=== PATIENT | female | born 1945 | race Caucasian/White ===

== ENCOUNTER 2018-01-14 10:05 | Emergency (ER) | payer OTHER ==
[2018-01-14 10:11] VITALS: BMI 30.2
--- NOTE | 2018-01-14 10:22 | DR.GENAD ---
HPI - PCP Primary Care Physician: - Complaint/Symptoms Chief Complaint Doctors Comments: Intermittent abd. pain x 3 weeks. She has recent nausea + vomitting. She states emesis had been clear but now is bilious. She has had no fever. The pain is located in epigastrium and lt, abdomen. Chief Complaint:: Patient c/o left sided abd pain with nausea and vomiting x3 weeks. Patient has a history of diverticulitis Self Treatment fo Chief Complaint: Patient has been taking antibitiocs- flagyl and doxycycline - Nurses notes reviewed Nurses Notes Review: Yes - Source History Provided: Patient - Mode of Arrival Mode of Arrival: Ambulatory - Timing Onset of Chief Complaint: 12/30/17 PMH - PMH Past Medical History: Yes Past Medical History: Hypertension Past Medical History Comment: diverticulitis Past Surgical History: No - Family History History of Family Medical Conditions: Yes Family Medical History: Hypertension - Social History Does patient currently use any type of tobacco product: No Have you used tobacco products in the last 12 months: No Type of Tobacco Use: None Does any household member use tobacco: No Alcohol Use: None Do you use any recreational Drugs:: No Lives With: Family Lives Where: Home - infectious screening In the last 2 months have you had wt loss of >10#?: NO Have you had fever, night sweats or hemotysis?: No Have you traveled outside the country in the last 6 months?: No Isolation: Standard ROS - Review of Systems Eyes: No Symptoms Reported ENTM: No Symptoms Reported Respiratoy: No Symptoms Reported Cardiovascular: No Symptoms Reported Gastrointestinal/Abdominal: Abdominal Pain, Nausea, Vomiting Genitourinary: No Symptoms Reported Neurological: No Symptoms Reported Musculoskeletal: No Symptoms Reported Integumentary: No Symptoms Reported Hematologic/Lymphatic: No Symptoms Reported Endocrine: No Symptoms Reported Psychiatric: No Symptoms Reported All Other Systems: Reviewed and Negative PE - Vital Signs Vitals: Temperature 97.1 F Pulse Rate [Left Brachial] 59 Pulse Rate 72 Respiratory Rate 19 Blood Pressure [Left Arm] 174/73 Blood Pressure 196/86 O2 Sat by Pulse Oximetry 100 - General Limitations: No Limitations General Appearance: Alert, In Distress (pain related) - Head Head Exam: Normal Inspection - Eyes Eye exam: Normal Appearance - ENT ENT Exam: Normal Exam - Neck Neck Exam: Normal Inspection - Chest Chest Inspection: Normal Inspection - Respiratory Respiratory Exam: Normal Lung Sounds Bilat - Cardiovascular Cardiovascular Exam: Regular Rate, Normal Rhythm, +S1, +S2 - Abdominal Exam Abdominal Exam: Normal Inspection, Normal Bowel Sounds, Soft, Tenderness Abdominal Tenderness: LUQ, LLQ, Epigastrium - Extremities Extremities Exam: Normal Inspection - Back Back Exam: Normal Inspection - Neurologic Neurological Exam: Alert, Oriented X3 - Psychiatric Psychiatric Exam: Normal Affect, Normal Mood - Skin Skin Exam: Warm, Dry, Intact, Normal Color ROR - Labs Reviewed Result Diagrams: 01/14/18 10:31 01/14/18 10:31 Laboratory: WBC 9.2 X10^3/uL (3.6-10.0) 01/14/18 10: RBC 4.77 X10^6/uL (3.5-5.4) 01/14/18 10:31 Hgb 13.8 g/dL (12.0-16.0) 01/14/18 10:31 Hct 40.1 % (36.0-47.0) 01/14/18 10:31 MCV 84.0 fL (80.0-100.0) 01/14/18 10:31 MCH 28.9 pg (27.0-34.0) 01/14/18 10:31 MCHC 34.4 g/dL (33.0-35.0) 01/14/18 10:31 RDW 14.0 % (11.6-16.5) 01/14/18 10:31 Plt Count 260 X10^3/uL (150.0-450.0) 01/14/18 10:31 MPV 8.9 fL (7.4-11.0) 01/14/18 10:31 Neut % (Auto) 72.8 % (42.0-75.0) 01/14/18 10:31 Lymph % (Auto) 20.3 % (21.0-51.0) L 01/14/18 10:31 [place] % (Auto) 4.8 % (0.0-13.0) 01/14/18 10:31 Eos % (Auto) 1.1 % (0.9-2.9) 01/14/18 10:31 Baso % (Auto) 1.0 % (0.2-1.0) 01/14/18 10:31 Neut # (Auto) 6.7 x10^3/uL (2.2-4.8) H 01/14/18 10:31 Lymph # (Auto) 1.9 X10^3/uL (1.3-2.9) 01/14/18 10:31 [place] # (Auto) 0.4 x10^3/uL (0.3-0.8) 01/14/18 10:31 Eos # (Auto) 0.1 x10^3/uL (0.0-0.2) 01/14/18 10:31 Baso # (Auto) 0.1 X10^3/uL (0.0-0.1) 01/14/18 10:31 Absolute Nucleated RBC 0.0 /100WBC 01/14/18 10:31 Sodium 143 mmol/L (136-145) 01/14/18 10:31 Corrected Sodium 144 mmol/L (136-145) 01/14/18 10:31 Potassium 4.1 mmol/L (3.5-5.1) 01/14/18 10:31 Chloride 106 mmol/L (98-107) 01/14/18 10:31 Carbon Dioxide 25.4 mmol/L (21-32) 01/14/18 10:31 BUN 14 mg/dL (7-18) 01/14/18 10:31 Creatinine 1.05 mg/dL (0.55-1.02) H 01/14/18 10:31 Est GFR (MDRD) Af Amer > 60 (>60) 01/14/18 10:31 Est GFR (MDRD) Non-Af 55 (>60) L 01/14/18 10:31 Glucose 123 mg/dL (65-99) H 01/14/18 10:31 Calcium 9.3 mg/dL (8.5-10.1) 01/14/18 10:31 Corrected Calcium TNP 01/14/18 10:31 Total Bilirubin 0.70 mg/dL (0.2-1.0) 01/14/18 10:31 AST 14 Units/L (15-37) L 01/14/18 10:31 ALT 11 Units/L (12-78) L 01/14/18 10:31 Alkaline Phosphatase 77 Units/L (46-116) 01/14/18 10:31 Total Protein 8.2 g/dL (6.4-8.2) 01/14/18 10:31 Albumin 3.9 g/dL (3.4-5.0) 01/14/18 10:31 Globulin 4.3 g/dL (2.5-4.5) 01/14/18 10:31 Albumin/Globulin Ratio 0.9 Ratio (1.1-2.1) L 01/14/18 10:31 Amylase 38 Units/L (25-115) 01/14/18 10:31 Lipase 117 Units/L (73-393) 01/14/18 10:31 Specimen Type Clean catch urine 01/14/18 11:10 Urine Color Straw (YELLOW) 01/14/18 11:10 Urine Appearance Hazy (CLEAR) 01/14/18 11:10 Urine pH 7.0 (5.0 - 8.0) 01/14/18 11:10 Ur Specific [place] 1.005 (1.000-1.030) 01/14/18 11:10 Urine Protein Negative (NEGATIVE) 01/14/18 11:10 Urine Glucose (UA) Negative (NEGATIVE) 01/14/18 11:10 Urine Ketones Negative (NEGATIVE) 01/14/18 11:10 Urine Occult Blood 3+ (NEGATIVE) 01/14/18 11:10 Urine Nitrite Negative (NEGATIVE) 01/14/18 11:10 Urine Bilirubin Negative (NEGATIVE) 01/14/18 11:10 Urine Urobilinogen Normal (NORMAL) 01/14/18 11:10 Ur Leukocyte Esterase 3+ (NEGATIVE) 01/14/18 11:10 Urine RBC 0-2 /HPF (NONE SEEN) 01/14/18 11:10 Urine WBC 5-10 /HPF (NONE SEEN) 01/14/18 11:10 Ur Squamous Epith Cells Few /HPF (NEGATIVE) 01/14/18 11:10 Urine Bacteria Trace /HPF (NEGATIVE) 01/14/18 11:10 Ur Culture Indicated? Yes/culture set up 01/14/18 11:10 - XRAY XRAY Interpreted by: Radiologist (CT Abd./Pelvis: No significant abnormality identified.) - Diagnosis Discharge Problem: Abdominal pain in female patient - Discharge Plan Disposition: 01 HOME, SELF-CARE Condition: Stable - Follow ups/Referrals Follow ups/Referrals: DANIA NEGRON [Primary Care Provider] - 3 days - Instructions Instructions: Abdominal Pain, Adult, [id number]
[2018-01-14] MEDS ORDERED: DILAUDID INJ IVP PRN (10:24)
[2018-01-14] MEDS ORDERED: NS 1000 ML 1,000 ML ONE (10:39)
[2018-01-14] MEDS ORDERED: DILAUDID INJ ONE (10:40)
[2018-01-14 10:46] LABS: BASOPHILS # (AUTO) 0.1 X10^3/uL (0.0-0.1); EOSINOPHILS # (AUTO) 0.1 x10^3/uL (0.0-0.2); EOSINOPHILS % (AUTO) 1.1 % (0.9-2.9); HEMATOCRIT 40.1 % (36.0-47.0); HEMOGLOBIN 13.8 g/dL (12.0-16.0); LYMPHOCYTES # (AUTO) 1.9 X10^3/uL (1.3-2.9); LYMPHOCYTES % (AUTO) 20.3 % (21.0-51.0); MEAN CORPUSCULAR HEMOGLOBIN 28.9 pg (27.0-34.0); MEAN CORPUSCULAR HGB CONC 34.4 g/dL (33.0-35.0); MEAN PLATELET VOLUME 8.9 fL (7.4-11.0); MONOCYTES # (AUTO) 0.4 x10^3/uL (0.3-0.8); MONOCYTES % (AUTO) 4.8 % (0.0-13.0); NEUTROPHILS # (AUTO) 6.7 x10^3/uL (2.2-4.8); NEUTROPHILS % (AUTO) 72.8 % (42.0-75.0); PLATELET COUNT 260 X10^3/uL (150.0-450.0); RED BLOOD COUNT 4.77 X10^6/uL (3.5-5.4); WHITE BLOOD COUNT 9.2 X10^3/uL (3.6-10.0)
[2018-01-14] MEDS ORDERED: NS 1000 ML 1,000 ML IV SCH (11:00)
[2018-01-14 11:01] LABS: ALANINE AMINOTRANSFERASE 11 Units/L (12-78); ALBUMIN 3.9 g/dL (3.4-5.0); ALKALINE PHOSPHATASE 77 Units/L (46-116); AMYLASE 38 Units/L (25-115); ASPARTATE AMINO TRANSFERASE 14 Units/L (15-37); BLOOD UREA NITROGEN 14 mg/dL (7-18); CALCIUM 9.3 mg/dL (8.5-10.1); CARBON DIOXIDE 25.4 mmol/L (21-32); CHLORIDE 106 mmol/L (98-107); COR NA(FOR HYPERGLY) 144 mmol/L (136-145); CREATININE 1.05 mg/dL (0.55-1.02); LIPASE 117 Units/L (73-393); SODIUM 143 mmol/L (136-145); TOTAL PROTEIN 8.2 g/dL (6.4-8.2); eGFR BLACK RACES > 60 (>60); eGFR NON BLACK RACES 55 (>60)
[2018-01-14 11:29] LABS: BILIRUBIN,URINE NEGATIVE (NEGATIVE); BLOOD/HEMOGLOBIN,URINE 3+ (NEGATIVE); GLUCOSE, URINE NEGATIVE (NEGATIVE); KETONES,URINE NEGATIVE (NEGATIVE); LEUKOCYTE ESTERASE ,URINE 3+ (NEGATIVE); NITRITES,URINE NEGATIVE (NEGATIVE); PROTEIN,URINE NEGATIVE (NEGATIVE); UROBILINOGEN,URINE NORMAL (NORMAL)
[2018-01-14 11:30] LABS: COLOR,URINE STRAW (YELLOW)
[2018-01-14 11:31] LABS: APPEARANCE,URINE HAZY (CLEAR)
[2018-01-14 11:37] LABS: BACTERIA,URINE TRACE /HPF (NEGATIVE); RBC,URINE 0-2 /HPF (NONE SEEN); SQUAMOUS EPITHELIAL CELL,UR FEW /HPF (NEGATIVE)
--- NOTE | 2018-01-14 13:29 | CT ---
HISTORY: Left-sided abdominal pain Study: CT abdomen pelvis with contrast Comparison: None Technique: Axial post-contrast images with coronal and sagittal reformats. Dose reduction procedures were used with mA/kv adjusted for body size. Findings: The lung bases are clear. The liver, spleen, adrenal glands, and pancreas are within normal limits. N o opaque stones are visible within the gallbladder. The kidneys are unobstructed and without stones o r masses. There is a left renal cyst present no ureteral calculi are identified. The appendix is norm al. Calcific atherosclerotic change is present in a nondilated abdominal aorta. No significant intrap eritoneal or retroperitoneal lymphadenopathy is identified. There are no findings suggestive of diver ticulitis or colitis. There is no evidence for small or large bowel obstruction. Examination of the p suzi demonstrated no evidence for pelvic masses, pelvic fluid, or pelvic lymphadenopathy. No bladder abnormality is identified. No lytic or blastic skeletal lesions are identified. IMPRESSION: No significant abnormality identified Reported By:
[2018-01-14] MEDS ORDERED: TORADOL 30 MG VIAL IVP ONE (13:35)
[2018-01-14 13:49] VITALS: BP 174/73
== END 2018-01-14 14:25 | disposition home or self-care (01) ==
LOC: ER 10:20
DX: R10.84 Generalized abdominal pain (principal)
CPT/HCPCS: 36415; 74177; 80053; 81001; 82150; 83690; 85025; 87086; 96365; 96367; 96374; 96375; 99283; A4222; J1170; J1885

== ENCOUNTER 2023-10-18 10:35 | Observation (INO) ==
[2023-10-18 12:09] VITALS: BMI 34.2
[2023-10-18 12:41] LABS: BASOPHILS # (AUTO) 0.1 X10^3/uL (0.0-0.1); BASOPHILS % (AUTO) 0.6 % (0.2-1.0); EOSINOPHILS # (AUTO) 0.4 x10^3/uL (0.0-0.2); EOSINOPHILS % (AUTO) 3.4 % (0.9-2.9); HEMATOCRIT 39.4 % (36.0-47.0); HEMOGLOBIN 12.6 g/dL (12.0-16.0); LYMPHOCYTES # (AUTO) 1.8 X10^3/uL (1.3-2.9); LYMPHOCYTES % (AUTO) 15.9 % (21.0-51.0); MEAN CORPUSCULAR HEMOGLOBIN 28.7 pg (27.0-34.0); MEAN CORPUSCULAR HGB CONC 32.1 g/dL (33.0-35.0); MEAN CORPUSCULAR VOLUME 89.5 fL (80.0-100.0); MEAN PLATELET VOLUME 8.8 fL (7.4-11.0); MONOCYTES # (AUTO) 0.8 x10^3/uL (0.3-0.8); MONOCYTES % (AUTO) 7.1 % (0.0-13.0); PLATELET COUNT 215 X10^3/uL (150.0-450.0); RED CELL DISTRIBUTION WIDTH 15.5 % (11.6-16.5)
[2023-10-18] MEDS: PULMICORT NEB TX 0.5 MG NEB SCH ×2 (12:42→21:00)
[2023-10-18] MEDS: DUONEB 0.5 MG/3 MG (3 mL) NEB SCH ×3 (12:42→21:00)
[2023-10-18 12:51] LABS: ALBUMIN 3.2 g/dL (3.4-5.0); CALCIUM 8.6 mg/dL (8.5-10.1); CARBON DIOXIDE 25.7 mmol/L (21-32); COR CA(FOR HYPOALB) 9.2 mg/dL (8.5-10.1); CREATININE 1.41 mg/dL (0.55-1.02); POTASSIUM 3.6 mmol/L (3.5-5.1); TOTAL PROTEIN 7.5 g/dL (6.4-8.2)
[2023-10-18] MEDS ORDERED: NS 1/2 1,000 ML IV 1,000 ML IV ONE (13:04)
[2023-10-18] MEDS: FORTAZ or TAZICEF VIAL INJ 1 G in NS 100 ML IV 100 ML IV SCH ×3 (13:16→21:20)
[2023-10-18] MEDS: LEVAQUIN PREMIX IV 750 MG 750 MG/150 ML BAG IV SCH (13:16)
[2023-10-18] MEDS: VSL#3 PO SCH (13:16)
[2023-10-18] MEDS: NS 1/2 1,000 ML IV 1,000 ML IV SCH (13:17)
[2023-10-18] MEDS: ROBITUSSIN DM PO SCH ×3 (13:17→21:21)
[2023-10-18] MEDS ORDERED: K-DUR TAB 20 MEQ PO SCH (14:00)
[2023-10-18] MEDS ORDERED: CONSULT PHARMACY - POTASSIUM & MAGNESIUM XX SCH (14:00)
[2023-10-18] MEDS: SOLU-Medrol 40 MG VIAL IVP SCH ×2 (14:37→21:21)
--- NOTE | 2023-10-18 16:13 | RAD ---
EXAM:CHEST, 1 VIEWHISTORY:PNEUMONIA, SOB; HTN, ANXIETY, ANEMIA, SX: HYSTERECTOMY COMPARISON:No relevant prior studies were available for comparison at the time of interpretation.TECHNIQUE:CHEST, 1 VIEWFINDINGS:Chest:Lines and tubes: NoneMediastinum: Cardiac and mediastinal shadow is within normal limits for size and contour.Pulmonary vessels: No pulmonary vascular congestion.Lung izquierdo: No suspicious airspace opacity.Pleura: No effusion. No pneumothorax.Bones and soft tissues: No acute osseous or soft tissue abnormality.IMPRESSION:1. No acute cardiopulmonary abnormalityTHIS IS AN ELECTRONICALLY VERIFIED FINAL REPORT10/18/2023 1:36 PM - Electronically signed by Chris Rangel MD
[2023-10-18] MEDS: TUSSIONEX PENNKINETIC SUSP PO PRN (20:20)
[2023-10-19] MEDS ORDERED: TYLENOL 325 MG TAB PO PRN (03:13)
[2023-10-19] MEDS: NS 1/2 1,000 ML IV 1,000 ML IV SCH ×4 (04:32→23:59)
[2023-10-19] MEDS: SOLU-Medrol 40 MG VIAL IVP SCH ×3 (05:18→22:28)
[2023-10-19] MEDS: FORTAZ or TAZICEF VIAL INJ 1 G in NS 100 ML IV 100 ML IV SCH ×3 (05:18→22:28)
[2023-10-19 05:54] LABS: BASOPHILS % (AUTO) 0.2 % (0.2-1.0); HEMATOCRIT 34.8 % (36.0-47.0); HEMOGLOBIN 11.4 g/dL (12.0-16.0); LYMPHOCYTES # (AUTO) 0.5 X10^3/uL (1.3-2.9); LYMPHOCYTES % (AUTO) 5.6 % (21.0-51.0); MEAN CORPUSCULAR HEMOGLOBIN 29.1 pg (27.0-34.0); MEAN CORPUSCULAR HGB CONC 32.9 g/dL (33.0-35.0); MEAN CORPUSCULAR VOLUME 88.5 fL (80.0-100.0); MONOCYTES # (AUTO) 0.2 x10^3/uL (0.3-0.8); MONOCYTES % (AUTO) 2.2 % (0.0-13.0); NEUTROPHILS # (AUTO) 8.2 x10^3/uL (2.2-4.8); PLATELET COUNT 184 X10^3/uL (150.0-450.0); RED BLOOD COUNT 3.93 X10^6/uL (3.5-5.4); RED CELL DISTRIBUTION WIDTH 15.7 % (11.6-16.5); WHITE BLOOD COUNT 8.9 X10^3/uL (3.6-10.0)
[2023-10-19 06:04] LABS: ALBUMIN 2.7 g/dL (3.4-5.0); CALCIUM 8.5 mg/dL (8.5-10.1); CARBON DIOXIDE 24.1 mmol/L (21-32); COR CA(FOR HYPOALB) 9.5 mg/dL (8.5-10.1); CREATININE 1.2 mg/dL (0.55-1.02); POTASSIUM 4.6 mmol/L (3.5-5.1)
[2023-10-19 06:12] LABS: PLATELET MORPHOLOGY COMMENT NORMAL (NORMAL)
[2023-10-19] MEDS: DUONEB 0.5 MG/3 MG (3 mL) NEB SCH ×6 (08:07→20:55)
[2023-10-19] MEDS: VSL#3 PO SCH (08:27)
[2023-10-19] MEDS: LEVAQUIN PREMIX IV 750 MG 750 MG/150 ML BAG IV SCH (08:27)
[2023-10-19] MEDS: ROBITUSSIN DM PO SCH ×4 (08:27→20:31)
[2023-10-19] MEDS: PULMICORT NEB TX 0.5 MG NEB SCH ×2 (08:27→20:55)
[2023-10-19] MEDS: TUSSIONEX PENNKINETIC SUSP PO PRN ×2 (08:28→20:31)
[2023-10-19] MEDS: ELIQUIS PO SCH ×2 (09:22→20:31)
[2023-10-19] MEDS ORDERED: ANTIVERT TAB 25 MG PO PRN (10:26)
[2023-10-19] MEDS: DICLOFENAC SODIUM 75 MG PO SCH ×2 (10:53→20:38)
[2023-10-19] MEDS: TESSALON PERLES PO SCH ×3 (10:54→22:00)
[2023-10-19] MEDS: ATIVAN TAB 0.5 MG PO SCH ×2 (10:54→20:31)
[2023-10-19] MEDS: MICRO K EXTEN CAP 10 MEQ PO SCH (10:55)
[2023-10-19] MEDS: LASIX PO SCH (10:55)
[2023-10-19] MEDS: NORVASC TAB 5 MG PO SCH (10:55)
[2023-10-19] MEDS: CORDARONE TAB 200 MG PO SCH ×2 (10:55→20:37)
[2023-10-19] MEDS: SODIUM BICARBONATE TAB 650MG PO SCH ×3 (10:56→22:28)
--- NOTE | 2023-10-19 11:04 | DR.H&P ---
H&P - History & Physical for Day of: H&P Date: 10/19/23 - Chief Complaint Chief Complaint: COUGH, CONGESTION, SOB, HEADACHE, CHILLS - History of Present Illness History of Present Illness: IS A 77 YEAR OLD PATIENT OF [facility]. SHE PRESENTED TO HIS OFFICE YESTERDAY WITH COMPLAINTS OF COUGH, CHEST CONGESTION, SHORNTESS OF BREATH, HEADACHE, AND CHILLS. SHE REPORTS THAT SYMPTOMS STARTED ON 10/16/23 AND HAVE PROGRESSIVELY GOTTEN WORSE. SHE REPORTS THAT COUGH HAS BEEN PRODUCTIVE OF THICK YELLOW SPUTUM. PATIENT REPORTS THAT SHE HAD THE SAME SYMPTOMS ABOUT A MONTH AGO AND WAS TREATED WITH A Z-PACK, LEVAQUIN X 7 DAYS, A MEDROL DOSEPACK, NEBULIZER TREATMENTS, AND TESSALON PERLES AT THAT TIME. SHE REPORTS THAT HER SYMPTOMS HAD IMPROVED, BUT HAVE NOW RETURNED. AUSCULTATION OF LUN[place] IN THE OFFICE APPARENTLY REVEALED SCATTERED WHEEZING AND RHONCHI. DECISION WAS MADE TO ADMIT THE PATIENT TO THE HOSPITAL FOR FURTHER EVALUATION AND TREATMENT OF BRONCHOPNEUMONIA. HER MEDICAL HX INCLUDES: HTN, HYPERLIPIDEMIA, ARTHRITIS, CHRONIC KIDNEY DISEASE, ANXIETY, A-FIB. ON ARRIVAL TO THE HOSPITAL, VITALS WERE: 97.8-81-18-94%RA-174/71. LABS WERE OBTAINED. WBC 11.0, RBC 4.40, HGB 12.6, HCT 39.4, PLT COUNT 215, SODIUM 140, POTASSIUM 3.6, CHLORIDE 105, CARBON DIOXIDE 25.7, BUN 16, CREATININE 1.41, GLUCOSE 167, CALCIUM 8.6, MAGNESIUM 2.1, TOTAL BILI 0.50, AST 14, ALT 19, ALK PHOS 88, TOTAL PROTEIN 7.5, ALBUMIN 3.2. COVID, INFLUENZA, RSV NEGATIVE. RESPIRATORY VIRAL PANEL WAS SET UP. BLOOD AND SPUTUM CULTURES WERE ALSO SET UP. A CHEST XRAY WAS OBTAINED AND REVEALED: 1. No acute cardiopulmonary abnormality. ON ADMISSION, SHE WAS STARTED ON NS AT 75 ML/HR, SOLU-MEDROL 80 MG IV Q8H, DUONEBS QID, PULMICORT NEBS BID, TUSSIONEX Q12H PRN, ROBITUSSIN DM QID, TESSALON PERLES TID, AND TYLENOL 650MG PO Q6H PRN PAIN. HER HOME MEDICATIONS OF AMIODARONE, NORVASC, ELIQUIS, LASIX, DICLOFENAC, ATIVAN, ANTIVERT, POTASSIUM CHLORIDE, MECLIZINE, CRESTOR, AND SODIUM BICARB WERE RESUMED. OTHERWISE, WE PLAN TO FOLLOW UP WITH AM LABS AND CHEST XRAY AND CONTINUE TO MONITOR. TIME SPENT ON CLINICAL ASSESSMENT, REVIEWING LABS AND IMAGING, DECISION MAKING, AND DOCUMENTATION GREATER THAN 75 MINUTES. - Past Medical History Past Medical History: Anemia, Anxiety, Depression, Dyslipidemia, Hypertension, Renal Disease - Past Surgical History Surgical History: Hysterectomy - Family History Family Medical History: Cancer - Social History Does patient currently use any type of tobacco product: No Have you used tobacco products in the last 12 months: No Type of Tobacco Use: None Does any household member use tobacco: No Alcohol Use: None Drug Use: None - Review of Systems Constitutional: Chills, Weakness Eyes: No Symptoms Reported ENT: No Symptoms Reported Respiratory: See HPI, Cough, Shortness of Breath, SOB with Excertion, Wheezing Cardiovascular: No Symptoms Reported Gastrointestinal: No Symptoms Reported Genitourinary: No Symptoms Reported Musculoskeletal: No Symptoms Reported Skin: No Symptoms Reported Neurological: Weakness - Physical Exam Vital Signs: Vital Signs Temperature 98.3 F Temperature 98.3 F Pulse Rate [Right Brachial] 86 Pulse Rate [Right Brachial] 86 Respiratory Rate 18 Respiratory Rate 18 Respiratory Rate 20 Respiratory Rate 18 Blood Pressure [Right Arm] 147/69 Blood Pressure [Left Arm] 133/62 O2 Sat by Pulse Oximetry 95 O2 Sat by Pulse Oximetry 96 Oriented: Normal Eyes: Normal Ear: Normal Nose: Normal Throat: Normal Respiratory: Rhonchi Throughout, Wheezes Throughout Cardiovascular: Normal : Normal Auscultation: Bowel Sounds: Normal Palpation: Normal Tenderness: Normal Skin: Normal Musculoskeletal: Normal Psychiatric: Normal Mood Description: Calm Affect: Normal Speech Pattern: Clear - Assessment/Plan (1) Bronchopneumonia Status: Acute Plan: ADMIT, SUPPLEMENTAL OXYGEN, NS AT 75 ML/HR, SOLU-MEDROL 80 MG IV Q8H, DUONEBS QID, PULMICORT NEBS BID, TUSSIONEX Q12H PRN, ROBITUSSIN DM QID, TESSALON PERLES TID, AND TYLENOL 650MG PO Q6H PRN PAIN. HER HOME MEDICATIONS OF AMIODARONE, NORVASC, ELIQUIS, LASIX, DICLOFENAC, ATIVAN, ANTIVERT, POTASSIUM CHLORIDE, MECLIZINE, CRESTOR, AND SODIUM BICARB WERE RESUMED. (2) Shortness of breath Status: Acute (3) HTN (hypertension) Qualifiers: Hypertension type: primary hypertension Qualified Code(s): I10 - Essential (primary) hypertension Status: Chronic Plan: CONTINUE HOME MEDS (4) Hyperlipidemia Qualifiers: Hyperlipidemia type: mixed hyperlipidemia Qualified Code(s): E78.2 - Mixed hyperlipidemia Status: Chronic Plan: CONTINUE HOME MEDS (5) Generalized anxiety disorder Status: Chronic Plan: CONTINUE HOME MEDS (6) Atrial fibrillation Qualifiers: Atrial fibrillation type: unspecified Qualified Code(s): I48.91 - Unspecified atrial fibrillation Status: Chronic Plan: CONTINUE ELIQUIS AND AMIODARONE - Allergies Allergies/Adverse Reactions: Allergies Allergy/AdvReac Type Severity Reaction Status Date / Time No Known Drug Allergies Allergy Verified 10/18/23 11:44 - Medications Home Medications: Home Medications Medication Instructions Recorded Confirmed albuterol sulfate 2.5 mg/3 mL 2.5 mg inhalation TID 10/18/23 10/18/23 (0.083 %) solution for nebulization amiodarone 200 mg tablet 200 mg PO BID 10/18/23 10/18/23 amiodarone 200 mg tablet 200 mg PO BID 10/18/23 10/18/23 amlodipine 5 mg tablet 5 mg PO QDAY 10/18/23 10/18/23 apixaban 5 mg tablet (Eliquis) 5 mg PO BID 10/18/23 10/18/23 benzonatate 200 mg capsule 200 mg PO TID 10/18/23 10/18/23 diclofenac sodium 75 mg 75 mg PO BID 10/18/23 10/18/23 tablet,delayed release furosemide 40 mg tablet 40 mg PO QDAY 10/18/23 10/18/23 lorazepam 0.5 mg tablet 0.5 mg PO BID 10/18/23 10/18/23 meclizine 25 mg tablet 25 mg PO TID PRN 10/18/23 10/18/23 potassium chloride 10 mEq 10 meq PO QDAY 10/18/23 10/18/23 tablet,extended release rosuvastatin 10 mg tablet 10 mg PO QPM 10/18/23 10/18/23 sodium bicarbonate 650 mg tablet 650 mg PO TID 10/18/23 10/18/23
--- NOTE | 2023-10-19 11:12 | PCM.PROG ---
Progress Note - Progress Note for Day of Date of Exam: 10/19/23 - Subjective Subjective: IS CURRENTLY OBSERVATION STATUS FOR TREATMENT OF BRONCHOPNEUMONIA AND SHORTNESS OF BREATH. HER MEDICAL HX INCLUDES: HTN, HYPERLIPIDEMIA, ARTHRITIS, CHRONIC KIDNEY DISEASE, ANXIETY, A-FIB. TODAY, SHE IS ALERT AND ORIENTED, LYING IN BED ON MORNING ROUNDS. SHE CONTINUES TO COMPLAIN OF COUGH AND OCCASIONAL SHORTNESS OF BREATH THIS MORNING. SHE REPORTS SLIGHT IMPROVEMENT IN SYMPTOMS SINCE ADMISSION YESTERDAY. ON EXAMINATION, HEART IS REGULAR IN RATE AND RHYTHM. BILATERAL LUNGS ARE NOTED WITH SCATTERED WHEEZING AND RHONCHI. ABDOMEN IS ROUND, SOFT, AND NON-TENDER WITH NORMAL BOWEL SOUNDS NOTED IN ALL QUADRANTS. GOOD RANGE OF MOTION NOTED TO UPPER AND LOWER EXTREMITIES WITH NO EDEMA NOTED. VITALS THIS MORNING WERE: 97.8-81-18-94%RA-174/71. LABS WERE OBTAINED. WBC 8.9, RBC 3.93, HGB 11.4, HCT 34.8, PLT COUNT 184, SODIUM 137, POTASSIUM 4.6, CHLORIDE 106, CARBON DIOXIDE 24.1, BUN 16, CREATININE 1.20, GLUCOSE 185, CALCIUM 8.5, TOTAL BILI 0.40, AST 13, ALT 20, ALK PHOS 87, TOTAL PROTEIN 7.0, ALBUMIN 2.7. COVID, INFLUENZA, RSV NEGATIVE. RESPIRATORY VIRAL PANEL WAS SET UP. BLOOD AND SPUTUM CULTURES ARE PENDING. SHE IS CURRENTLY RECEIVING NS AT 75 ML/HR, LEVAQUIN 750MG IV DAILY, FORTAZ 1G IV Q8H, SOLU-MEDROL 80 MG IV Q8H, DUONEBS QID, PULMICORT NEBS BID, TUSSIONEX Q12H PRN, ROBITUSSIN DM QID, TESSALON PERLES TID, AND TYLENOL 650MG PO Q6H PRN PAIN. HER HOME MEDICATIONS OF AMIODARONE, NORVASC, ELIQUIS, LASIX, DICLOFENAC, ATIVAN, ANTIVERT, POTASSIUM CHLORIDE, MECLIZINE, CRESTOR, AND SODIUM BICARB WERE RESUMED. WE WILL CONTINUE WITH CURRENT PLAN OF CARE TODAY. OTHERWISE, WE PLAN TO FOLLOW UP WITH AM LABS AND CHEST XRAY AND CONTINUE TO MONITOR. TIME SPENT ON CLINICAL ASSESSMENT, REVIEWING LABS AND IMAGING, DECISION MAKING, AND DOCUMENTATION GREATER THAN 75 MINUTES. - Past Medical Family Social History Past Med/Fam/Surg Hx: No changes since H&P Allergies: Allergies No Known Drug Allergies Allergy (Verified 10/18/23 11:44) - Review of Systems ROS: No change since H&P - Vital Signs and I&O's Vital Signs: Vital Signs Temperature 98.3 F Temperature 98.3 F Pulse Rate [Right Brachial] 86 Pulse Rate [Right Brachial] 86 Respiratory Rate 18 Respiratory Rate 18 Respiratory Rate 20 Respiratory Rate 18 Blood Pressure [Right Arm] 147/69 Blood Pressure [Left Arm] 133/62 O2 Sat by Pulse Oximetry 95 O2 Sat by Pulse Oximetry 96 Intake and Output: Intake & Output 10/16/23 10/17/23 10/18/23 10/19/23 11:59 11:59 11:59 11:59 Intake Total 3386 / 3386 Output Total Balance 3380 / 3380 - Physical Exam Oriented: Normal Eyes: Normal Ear: Normal Nose: Normal Throat: Normal Respiratory: Wheezes, Rhonchi Cardiovascular: Normal : Normal Auscultation: Bowel Sounds: Normal Palpation: Normal Tenderness: Normal Skin: Normal Musculoskeletal: Normal Psychiatric: Normal Mood Description: Calm Affect: Normal Speech Pattern: Clear - Laboratory and Diagnostics Result Diagrams: 10/19/23 05:13 10/19/23 05:13 Labs: 10/18/23 12:15 Sputum - Expectorated Sputum Sputum Culture - Preliminary 10/18/23 12:15 Sputum - Expectorated Sputum - Final Laboratory WBC 8.9 X10^3/uL (3.6-10.0) 10/19/23 05:13 RBC 3.93 X10^6/uL (3.5-5.4) 10/19/23 05:13 Hgb 11.4 g/dL (12.0-16.0) L 10/19/23 05:13 Hct 34.8 % (36.0-47.0) L 10/19/23 05:13 MCV 88.5 fL (80.0-100.0) 10/19/23 05:13 MCH 29.1 pg (27.0-34.0) 10/19/23 05:13 MCHC 32.9 g/dL (33.0-35.0) L 10/19/23 05:13 RDW 15.7 % (11.6-16.5) 10/19/23 05:13 Plt Count 184 X10^3/uL (150.0-450.0) 10/19/23 05:13 Plt Count Comment Adequate (ADEQUATE) 10/19/23 05:13 MPV 9.0 fL (7.4-11.0) 10/19/23 05:13 Neut % (Auto) 92.0 % (42.0-75.0) H 10/19/23 05:13 Lymph % (Auto) 5.6 % (21.0-51.0) L 10/19/23 05:13 [place] % (Auto) 2.2 % (0.0-13.0) 10/19/23 05:13 Eos % (Auto) 0.0 % (0.9-2.9) L 10/19/23 05:13 Baso % (Auto) 0.2 % (0.2-1.0) 10/19/23 05:13 Neut # (Auto) 8.2 x10^3/uL (2.2-4.8) H 10/19/23 05:13 Lymph # (Auto) 0.5 X10^3/uL (1.3-2.9) L 10/19/23 05:13 [place] # (Auto) 0.2 x10^3/uL (0.3-0.8) L 10/19/23 05:13 Eos # (Auto) 0.0 x10^3/uL (0.0-0.2) 10/19/23 05:13 Baso # (Auto) 0.0 X10^3/uL (0.0-0.1) 10/19/23 05:13 Absolute Nucleated RBC 0.0 /100WBC 10/19/23 05:13 Total Counted 100 10/19/23 05:13 Neutrophils % (Manual) 91 % (39-76) H 10/19/23 05:13 Lymphocytes % (Manual) 8 % (13-43) L 10/19/23 05:13 Monocytes % (Manual) 1 % (4-9) L 10/19/23 05:13 Plt Morphology Comment Normal (NORMAL) 10/19/23 05:13 RBC Morphology Normal (NORMAL) 10/19/23 05:13 Sodium 137 mmol/L (136-145) 10/19/23 05:13 Corrected Sodium 139 mmol/L (136-145) 10/19/23 05:13 Potassium 4.6 mmol/L (3.5-5.1) 10/19/23 05:13 Chloride 106 mmol/L (98-107) 10/19/23 05:13 Carbon Dioxide 24.1 mmol/L (21-32) 10/19/23 05:13 BUN 16 mg/dL (7-18) 10/19/23 05:13 Creatinine 1.20 mg/dL (0.55-1.02) H 10/19/23 05:13 Est GFR (MDRD) Af Amer 56 (>60) L 10/19/23 05:13 Est GFR (MDRD) Non-Af 46 (>60) L 10/19/23 05:13 Glucose 185 mg/dL (65-99) H 10/19/23 05:13 Calcium 8.5 mg/dL (8.5-10.1) 10/19/23 05:13 Corrected Calcium 9.5 mg/dL (8.5-10.1) 10/19/23 05:13 Magnesium 2.1 mg/dL (2.0-2.9) 10/18/23 12:16 Total Bilirubin 0.40 mg/dL (0.2-1.0) 10/19/23 05:13 AST 13 Units/L (15-37) L 10/19/23 05:13 ALT 20 Units/L (12-78) 10/19/23 05:13 Alkaline Phosphatase 87 Units/L (46-116) 10/19/23 05:13 Total Protein 7.0 g/dL (6.4-8.2) 10/19/23 05:13 Albumin 2.7 g/dL (3.4-5.0) L 10/19/23 05:13 Globulin 4.3 g/dL (2.5-4.5) 10/19/23 05:13 Albumin/Globulin Ratio 0.6 Ratio (1.1-2.1) L 10/19/23 05:13 SARS-CoV-2 (PCR) Negative (NEGATIVE) 10/18/23 12:20 Influenza Type A (PCR) Negative (NEGATIVE) 10/18/23 12:20 Influenza Type B (PCR) Negative (NEGATIVE) 10/18/23 12:20 RSV (PCR) Negative (NEGATIVE) 10/18/23 12:20 Resp Viral Panel (PCR) See scanned report 10/18/23 12:20 - Plan (1) Bronchopneumonia Status: Acute Plan: SUPPLEMENTAL OXYGEN, NS AT 75 ML/HR, LEVAQUIN 750MG IV DAILY, FORTAZ 1G IV Q8H, SOLU-MEDROL 80 MG IV Q8H, DUONEBS QID, PULMICORT NEBS BID, TUSSIONEX Q12H PRN, ROBITUSSIN DM QID, TESSALON PERLES TID, AND TYLENOL 650MG PO Q6H PRN PAIN. HER HOME MEDICATIONS OF AMIODARONE, NORVASC, ELIQUIS, LASIX, DICLOFENAC, ATIVAN, ANTIVERT, POTASSIUM CHLORIDE, MECLIZINE, CRESTOR, AND SODIUM BICARB WERE RESUMED. (2) Shortness of breath Status: Acute (3) HTN (hypertension) Status: Chronic Qualifiers: Hypertension type: primary hypertension Qualified Code(s): I10 - Essential (primary) hypertension Plan: CONTINUE HOME MEDS (4) Hyperlipidemia Status: Chronic Qualifiers: Hyperlipidemia type: mixed hyperlipidemia Qualified Code(s): E78.2 - Mixed hyperlipidemia Plan: CONTINUE HOME MEDS (5) Generalized anxiety disorder Status: Chronic Plan: CONTINUE HOME MEDS (6) Atrial fibrillation Status: Chronic Qualifiers: Atrial fibrillation type: unspecified Qualified Code(s): I48.91 - Unspeci fied atrial fibrillation Plan: CONTINUE ELIQUIS AND AMIODARONE
[2023-10-19] MEDS ORDERED: NS 1/2 1,000 ML IV 1,000 ML IV ONE ×2 (14:14→23:57)
[2023-10-19] MEDS: CRESTOR TAB 10 MG PO SCH (20:31)
[2023-10-20 00:52] LABS: BILIRUBIN,URINE NEGATIVE (NEGATIVE); BLOOD/HEMOGLOBIN,URINE NEGATIVE (NEGATIVE); GLUCOSE, URINE 3+ (NEGATIVE); KETONES,URINE NEGATIVE (NEGATIVE); LEUKOCYTE ESTERASE ,URINE 2+ (NEGATIVE); NITRITES,URINE NEGATIVE (NEGATIVE); PROTEIN,URINE NEGATIVE (NEGATIVE); UROBILINOGEN,URINE NORMAL (NORMAL)
[2023-10-20 01:04] LABS: APPEARANCE,URINE CLEAR (CLEAR); COLOR,URINE YELLOW (YELLOW)
[2023-10-20 01:05] LABS: BACTERIA,URINE TRACE /HPF (NEGATIVE); RBC,URINE 0-2 /HPF (0-3); SQUAMOUS EPITHELIAL CELL,UR FEW /HPF (NEGATIVE)
[2023-10-20] MEDS: SODIUM BICARBONATE TAB 650MG PO SCH ×3 (05:16→21:11)
[2023-10-20] MEDS: FORTAZ or TAZICEF VIAL INJ 1 G in NS 100 ML IV 100 ML IV SCH ×3 (05:16→21:08)
[2023-10-20] MEDS: TESSALON PERLES PO SCH ×3 (05:16→21:04)
[2023-10-20] MEDS: SOLU-Medrol 40 MG VIAL IVP SCH ×3 (05:17→21:03)
[2023-10-20 06:19] LABS: BASOPHILS % (AUTO) 0.3 % (0.2-1.0); HEMATOCRIT 34.4 % (36.0-47.0); HEMOGLOBIN 11.3 g/dL (12.0-16.0); LYMPHOCYTES # (AUTO) 0.7 X10^3/uL (1.3-2.9); LYMPHOCYTES % (AUTO) 6.4 % (21.0-51.0); MEAN CORPUSCULAR HGB CONC 32.8 g/dL (33.0-35.0); MEAN CORPUSCULAR VOLUME 88.4 fL (80.0-100.0); MEAN PLATELET VOLUME 9.3 fL (7.4-11.0); MONOCYTES # (AUTO) 0.3 x10^3/uL (0.3-0.8); MONOCYTES % (AUTO) 3.1 % (0.0-13.0); NEUTROPHILS # (AUTO) 10.1 x10^3/uL (2.2-4.8); NEUTROPHILS % (AUTO) 90.2 % (42.0-75.0); PLATELET COUNT 201 X10^3/uL (150.0-450.0); RED BLOOD COUNT 3.89 X10^6/uL (3.5-5.4); RED CELL DISTRIBUTION WIDTH 15.7 % (11.6-16.5); WHITE BLOOD COUNT 11.1 X10^3/uL (3.6-10.0)
[2023-10-20 06:36] LABS: ALBUMIN 2.6 g/dL (3.4-5.0); CALCIUM 8.6 mg/dL (8.5-10.1); CARBON DIOXIDE 23.6 mmol/L (21-32); COR CA(FOR HYPOALB) 9.7 mg/dL (8.5-10.1); CREATININE 1.3 mg/dL (0.55-1.02); POTASSIUM 4.1 mmol/L (3.5-5.1); TOTAL PROTEIN 6.8 g/dL (6.4-8.2)
[2023-10-20 07:07] LABS: BAND NEUTROPHILS % 3 % (0-10); PLATELET MORPHOLOGY COMMENT NORMAL (NORMAL)
[2023-10-20 08:30] VITALS: RESP 20
[2023-10-20] MEDS: ROBITUSSIN DM PO SCH ×4 (08:32→21:03)
[2023-10-20] MEDS: NORVASC TAB 5 MG PO SCH (08:32)
[2023-10-20] MEDS: ELIQUIS PO SCH ×2 (08:32→21:11)
[2023-10-20] MEDS: LEVAQUIN PREMIX IV 750 MG 750 MG/150 ML BAG IV SCH (08:32)
[2023-10-20] MEDS: MICRO K EXTEN CAP 10 MEQ PO SCH (08:33)
[2023-10-20] MEDS: CORDARONE TAB 200 MG PO SCH ×2 (08:33→21:29)
[2023-10-20] MEDS: VSL#3 PO SCH (08:33)
[2023-10-20] MEDS: ATIVAN TAB 0.5 MG PO SCH ×2 (08:33→21:04)
[2023-10-20] MEDS: LASIX PO SCH (08:33)
[2023-10-20] MEDS: NS 1/2 1,000 ML IV 1,000 ML IV SCH ×3 (08:41→22:30)
[2023-10-20] MEDS: DICLOFENAC SODIUM 75 MG PO SCH ×2 (08:52→21:29)
[2023-10-20] MEDS: DUONEB 0.5 MG/3 MG (3 mL) NEB SCH ×4 (10:31→21:44)
[2023-10-20] MEDS: PULMICORT NEB TX 0.5 MG NEB SCH ×2 (10:32→21:44)
[2023-10-20] MEDS ORDERED: NS 1/2 1,000 ML IV 1,000 ML IV ONE ×2 (13:10→20:02)
[2023-10-20] MEDS: CRESTOR TAB 10 MG PO SCH (21:04)
[2023-10-21] MEDS: SOLU-Medrol 40 MG VIAL IVP SCH (06:00)
[2023-10-21] MEDS: SODIUM BICARBONATE TAB 650MG PO SCH (06:00)
[2023-10-21] MEDS: FORTAZ or TAZICEF VIAL INJ 1 G in NS 100 ML IV 100 ML IV SCH (06:00)
[2023-10-21] MEDS: TESSALON PERLES PO SCH (06:01)
[2023-10-21 06:34] LABS: BASOPHILS % (AUTO) 0.1 % (0.2-1.0); HEMOGLOBIN 11.2 g/dL (12.0-16.0); LYMPHOCYTES # (AUTO) 0.7 X10^3/uL (1.3-2.9); LYMPHOCYTES % (AUTO) 6.4 % (21.0-51.0); MEAN CORPUSCULAR HEMOGLOBIN 28.4 pg (27.0-34.0); MEAN CORPUSCULAR HGB CONC 32.1 g/dL (33.0-35.0); MEAN CORPUSCULAR VOLUME 88.6 fL (80.0-100.0); MEAN PLATELET VOLUME 8.5 fL (7.4-11.0); MONOCYTES # (AUTO) 0.5 x10^3/uL (0.3-0.8); MONOCYTES % (AUTO) 4.5 % (0.0-13.0); NEUTROPHILS # (AUTO) 10.3 x10^3/uL (2.2-4.8); PLATELET COUNT 216 X10^3/uL (150.0-450.0); RED BLOOD COUNT 3.95 X10^6/uL (3.5-5.4); RED CELL DISTRIBUTION WIDTH 15.2 % (11.6-16.5); WHITE BLOOD COUNT 11.6 X10^3/uL (3.6-10.0)
[2023-10-21 06:49] LABS: ALBUMIN 2.7 g/dL (3.4-5.0); CALCIUM 8.8 mg/dL (8.5-10.1); COR CA(FOR HYPOALB) 9.8 mg/dL (8.5-10.1); CREATININE 1.39 mg/dL (0.55-1.02); POTASSIUM 3.5 mmol/L (3.5-5.1); TOTAL PROTEIN 6.6 g/dL (6.4-8.2)
[2023-10-21] MEDS ORDERED: NS 1/2 + KCL 20 MEQ/L 1,000 ML IV SCH (08:00)
[2023-10-21] MEDS ORDERED: CONSULT PHARMACY - POTASSIUM & MAGNESIUM XX SCH (08:00)
[2023-10-21] MEDS: PULMICORT NEB TX 0.5 MG NEB SCH (08:40)
[2023-10-21] MEDS: DUONEB 0.5 MG/3 MG (3 mL) NEB SCH (08:40)
[2023-10-21 08:43] VITALS: O2SAT 96
[2023-10-21 09:17] VITALS: BP 166/78; PULSE 93; TEMP 98.4
[2023-10-21] MEDS: ELIQUIS PO SCH (10:23)
[2023-10-21] MEDS: VSL#3 PO SCH (10:23)
[2023-10-21] MEDS: ROBITUSSIN DM PO SCH (10:24)
[2023-10-21] MEDS: LASIX PO SCH (10:24)
[2023-10-21] MEDS: MICRO K EXTEN CAP 10 MEQ PO SCH (10:24)
[2023-10-21] MEDS: NORVASC TAB 5 MG PO SCH (10:24)
[2023-10-21] MEDS: CORDARONE TAB 200 MG PO SCH (10:24)
[2023-10-21] MEDS: ATIVAN TAB 0.5 MG PO SCH (10:24)
[2023-10-21] MEDS: DICLOFENAC SODIUM 75 MG PO SCH (11:24)
[2023-10-21] MEDS: LEVAQUIN PREMIX IV 750 MG 750 MG/150 ML BAG IV SCH (11:34)
== END 2023-10-21 11:30 | disposition home or self-care (01) ==
LOC: MED/SURG
PROVIDERS: ADMIT Internal Medicine; ATTEND Internal Medicine